=== PATIENT | male | born 1950 | race Asian ===

== ENCOUNTER 2021-12-12 07:45 | Day surgery (SDC) | payer OTHER, SELFPAY ==
[~2021-12-12] VITALS: Ht 165.1 cm; Wt 82.6 kg
[2021-12-12] MEDS ORDERED: NS 250 ML IV.SOLN IV ONE (10:37)
[2021-12-12] MEDS ORDERED: WATER FOR IRRIGATION,STERILE 1,000 ML IRRIG.SOLN IR ONE (10:37)
[2021-12-12] MEDS ORDERED: NS IRRIG SOLN 1000 ML IR ONE (10:37)
[2021-12-12] MEDS ORDERED: ARTICAINE HCL/EPINEPHRINE 4%/1:200,000 BIT 1.7 ML CARTRIDGE IJ ONE (10:37)
[2021-12-12] MEDS ORDERED: BACITRACIN ZINC 15 GM TOPICAL OINTMENT TP ONE (10:37)
[2021-12-12 14:22] VITALS: BP_SYST 128
== END 2021-12-12 11:25 | disposition home or self-care (01) ==
LOC: SDS 07:45 → SMU 07:49 → SDS 11:25
PROVIDERS: ATTEND Dentist General Practice
DX: M27.2 Inflammatory conditions of jaws (principal); K21.9 Gastro-esophageal reflux disease without esophagitis; I10 Essential (primary) hypertension; E03.9 Hypothyroidism, unspecified; J45.909 Unspecified asthma, uncomplicated; Z79.899 Other long term (current) drug therapy; Z20.822 Contact with and (suspected) exposure to COVID-19
CPT/HCPCS: 21025; 21215; 21248; 36415; 70140; 87426; C1713 ×2; J7050

== ENCOUNTER 2021-12-20 07:39 | Day surgery (SDC) | payer OTHER, SELFPAY ==
[~2021-12-20] VITALS: Ht 165.1 cm; Wt 82.6 kg
[2021-12-20] MEDS ORDERED: ARTICAINE HCL/EPINEPHRINE 4%/1:200,000 BIT 1.7 ML CARTRIDGE IJ ONE (15:00)
[2021-12-20] MEDS ORDERED: BENZOCAINE 20% GEL 32 GM BOTTLE MM ONE (15:00)
[2021-12-20] MEDS ORDERED: WATER FOR IRRIGATION,STERILE 1,000 ML IRRIG.SOLN IR ONE (15:00)
[2021-12-20] MEDS ORDERED: NS IRRIG SOLN 1000 ML IR ONE (15:00)
[2021-12-20 15:13] VITALS: BP_SYST 135
== END 2021-12-20 12:10 | disposition home or self-care (01) ==
LOC: SDS 07:39 → SMU 07:40 → SDS 12:10
PROVIDERS: ATTEND Dentist General Practice
DX: M27.2 Inflammatory conditions of jaws (principal); K04.7 Periapical abscess without sinus; I10 Essential (primary) hypertension; E78.5 Hyperlipidemia, unspecified; E03.9 Hypothyroidism, unspecified; K21.9 Gastro-esophageal reflux disease without esophagitis; J45.909 Unspecified asthma, uncomplicated; Z20.822 Contact with and (suspected) exposure to COVID-19; Z79.899 Other long term (current) drug therapy
CPT/HCPCS: 21026; 21215; 21248; 36415; 41826; 70140; 87426; C1713 ×2

== ENCOUNTER 2022-01-10 07:48 | Day surgery (SDC) | payer OTHER, SELFPAY ==
[~2022-01-10] VITALS: Ht 165.1 cm; Wt 82.6 kg
[2022-01-10] MEDS ORDERED: NS IRRIG SOLN 1000 ML IR ONE (13:21)
[2022-01-10] MEDS ORDERED: ARTICAINE HCL/EPINEPHRINE 4%/1:200,000 BIT 1.7 ML CARTRIDGE IJ ONE (13:21)
[2022-01-10] MEDS ORDERED: NS 250 ML IV.SOLN IV ONE (13:21)
[2022-01-10] MEDS ORDERED: BENZOCAINE 20% GEL 32 GM BOTTLE MM ONE (13:21)
[2022-01-10 15:09] VITALS: BP_SYST 128
== END 2022-01-10 13:40 | disposition home or self-care (01) ==
LOC: SDS 07:48 → SMU 08:27 → SDS 13:40
PROVIDERS: ATTEND Dentist General Practice
DX: M27.2 Inflammatory conditions of jaws (principal); K05.223 Aggressive periodontitis, generalized, severe; G50.1 Atypical facial pain; K04.2 Pulp degeneration; K08.421 Partial loss of teeth due to periodontal diseases, class I; K21.9 Gastro-esophageal reflux disease without esophagitis; I10 Essential (primary) hypertension; E03.9 Hypothyroidism, unspecified; E78.5 Hyperlipidemia, unspecified; J45.909 Unspecified asthma, uncomplicated; E11.9 Type 2 diabetes mellitus without complications; F17.210 Nicotine dependence, cigarettes, uncomplicated; Z79.899 Other long term (current) drug therapy; Z20.822 Contact with and (suspected) exposure to COVID-19
CPT/HCPCS: 21026; 21048; 21215; 36415; 41826; 70140; 87426; C1713 ×2; J7050